=== PATIENT | male | born 1980 | race American Indian/Alaskan Native ===

== ENCOUNTER 2016-09-01 07:03 | Emergency (ER) | payer OTHER ==
[2016-09-01 07:28] VITALS: BP 115/60; PULSE 88; RESP 20; TEMP 99; O2SAT 98
--- NOTE | 2016-09-01 07:40 | ED PDOC ---
HPI: General Adult Time Seen by Provider: 09/01/16 07:35 Chief Complaint (Nursing): Lower Extremity Problem/Injury Chief Complaint (Provider): right knee pain History Per: Patient History/Exam Limitations: no limitations Additional Complaint(s): 36yo male comes to the ED complaining of right knee pain after twisting it while playing basketball with his son two days ago. No falls or other trauma. Describes pain as "tight" when bending the right knee. No other complaints. Past Medical History Reviewed: Historical Data, Nursing Documentation, Vital Signs Vital Signs: Last Vital Signs Temp 99 F 09/01/16 07:25 Pulse 88 09/01/16 07:25 Resp 20 09/01/16 07:25 BP 115/60 09/01/16 07:25 Pulse Ox 98 09/01/16 07:41 - Medical History PMH: No Chronic Diseases - Surgical History Surgical History: No Surg Hx - Family History Family History: States: Unknown Family Hx - Living Arrangements Living Arrangements: With Family - Social History Current smoker - smoking cessation education provided: No Drugs: Denies - Home Medications Home Medications: Ambulatory Orders Medication Instructions Recorded Naproxen [Naprosyn] 500 mg PO Q12H #20 tab 09/01/16 - Allergies Allergies/Adverse Reactions: Allergies Allergy/AdvReac Type Severity Reaction Status Date / Time No Known Allergies Allergy Verified 09/01/16 07:40 Review of Systems Musculoskeletal: Positive for: Other (knee pain) Physical Exam - Reviewed Nursing Documentation Reviewed: Yes Vital Signs Reviewed: Yes - Physical Exam Appears: Positive for: Well, Non-toxic, No Acute Distress Head Exam: Positive for: ATRAUMATIC, NORMAL INSPECTION, NORMOCEPHALIC Skin: Positive for: Warm, Dry Extremity: Positive for: Normal ROM (right knee full ROM.), Other (minimal swelling and tenderness to right knee. no crepitus.) - ECG O2 Sat by Pulse Oximetry: 98 (RA) Pulse Ox Interpretation: Normal Medical Decision Making Medical Decision Makin: Explained XR will be obtained in the ED. Recommend patient follow up with orthopedics as an outpatient to discuss further treatment. Disposition - Clinical Impression Clinical Impression: Knee sprain - Patient ED Disposition Is Patient to be Admitted: No Counseled Patient/Family Regarding: Studies Performed, Diagnosis, Need For Followup, Rx Given - Disposition Referrals: Ashwin Farah III, MD [Staff Provider] - Disposition: Routine/Home Disposition Time: 08:15 Condition: FAIR Prescriptions: Naproxen [Naprosyn] 500 mg PO Q12H #20 tab Instructions: Knee Sprain (ED) Additional Comments - Additional Comments Additional Comments: Scribe Attestation: Documented by Jarek Leary acting as a scribe for Jacob Cary MD. Provider Scribe Attestation: All medical record entries made by the Scribe were at my direction and personally dictated by me. I have reviewed the chart and agree that the record accurately reflects my personal performance of the history, physical exam, medical decision making, and the department course for this patient. I have also personally directed, reviewed, and agree with the discharge instructions and disposition.
[2016-09-01] MEDS ORDERED: Naproxen 500 MG TAB PO STA (07:47)
[2016-09-01] MEDS ORDERED: Naproxen 500 MG TAB PO ONE (08:28)
--- NOTE | 2016-09-01 10:56 | RAD ---
PROCEDURE: Right Knee Radiographs. HISTORY: COMPARISON: None available FINDINGS: Rotated lateral view. BONES: No acute displaced fracture. JOINTS: No dislocation. JOINT EFFUSION: Small suprapatellar joint effusion. OTHER FINDINGS: None. IMPRESSION: Small suprapatellar joint effusion. No acute displaced fracture or dislocation identified. If symptoms persist, or if there is continued clinical concern, x-ray follow-up in 7-10 days should be considered.
== END 2016-09-01 08:53 | disposition home or self-care (01) ==
LOC: H.ER 07:03
DX: M25.561 Pain in right knee (principal); X50.9XXA Other and unspecified overexertion or strenuous movements or postures, initial encounter; Y93.67 Activity, basketball

== ENCOUNTER 2017-06-03 09:41 | Emergency (ER) | payer SELFPAY ==
[2017-06-03 09:55] VITALS: TEMP 98; O2SAT 98
[2017-06-03] MEDS ORDERED: Sodium Chloride 0.9% 1,000 ML IV STA (10:25)
[2017-06-03 11:03] LABS: BASO % 0.7 % (0.0-2.0); EOS # 0.3 K/uL (0.0-0.7); EOS % 5.7 % (0.0-4.0); HEMOGLOBIN 14.8 g/dL (12.0-18.0); LYMPH # 1.8 K/uL (1.0-4.3); LYMPH % 39.2 % (20.0-40.0); MEAN CELL VOLUME 87.9 fl (80.0-94.0); MEAN CORPUSCULAR HEMOGLOBIN 28.9 pg (27.0-31.0); MEAN CORPUSCULAR HGB CONC 32.9 g/dL (33.0-37.0); MEAN PLATELET VOLUME 10.4 fl (7.2-11.7); MONO # 0.4 K/uL (0.0-0.8); MONO % 8.5 % (0.0-10.0); NEUT # 2.2 K/uL (1.8-7.0); NEUT % 45.9 % (50.0-75.0); NRBC % 0.3 % (0.0-0.0); RBC 5.11 Mil/uL (4.40-5.90); WHITE BLOOD COUNT 4.7 K/uL (4.8-10.8)
[2017-06-03 11:11] LABS: ALB/GLOB RATIO 1.2 (1.0-2.1); ALBUMIN 4.2 g/dL (3.5-5.0); ALT/SGPT 33 U/L (21-72); AST/SGOT 32 U/L (17-59); BLOOD UREA NITROGEN 17 mg/dl (9-20); CALCIUM 9.3 mg/dL (8.4-10.2); GFR AFRICAN-AMERICAN > 60; GFR NON-AFRICAN AMERICAN > 60
--- NOTE | 2017-06-03 12:11 | ED PDOC ---
Syncope/Near Syncope/Dizziness Time Seen by Provider: 06/03/17 10:08 Chief Complaint (Nursing): Dizziness/Lightheaded History Per: Patient (36 yo male sent from the [facility] this morning because of complaints of dizziness during a scheduled visit at there. Patient was noted to have a low heart rate. An EKG was done and there was concern of acute findings of bradycardia and repolarization changes. He does not have chest pain or dyspnea. He c/o feeling lighthead but there is not vertiginous component. He works out in the gym with strength and cardiovascular training. He denies fever , chills, nausea, vomiting.) History/Exam Limitations: no limitations Past Medical History Reviewed: Historical Data, Nursing Documentation, Vital Signs Vital Signs: Last Vital Signs Temp 98.0 F 06/03/17 09:54 Pulse 54 L 06/03/17 09:54 Resp 20 06/03/17 09:54 BP 133/72 06/03/17 09:54 Pulse Ox 98 06/03/17 09:54 - Medical History PMH: No Chronic Diseases - Surgical History Surgical History: No Surg Hx - Family History Family History: States: Unknown Family Hx - Living Arrangements Living Arrangements: With Family - Social History Current smoker - smoking cessation education provided: No Alcohol: None Drugs: Denies - Home Medications Home Medications: Ambulatory Orders Medication Instructions Recorded Naproxen [Naprosyn] 500 mg PO Q12H #20 tab 09/01/16 - Allergies Allergies/Adverse Reactions: Allergies Allergy/AdvReac Type Severity Reaction Status Date / Time No Known Allergies Allergy Verified 09/01/16 07:40 Review of Systems ROS Statement: Except As Marked, All Systems Reviewed And Found Negative Constitutional: Negative for: Fever, Chills Eyes: Negative for: Conjunctivae Inflammation ENT: Negative for: Ear Pain, Ear Discharge Cardiovascular: Negative for: Chest Pain Respiratory: Negative for: Cough Neurological: Positive for: Dizziness. Negative for: Weakness, Numbness, Incoordination, Change in Speech, Confusion Physical Exam - Reviewed Nursing Documentation Reviewed: Yes Vital Signs Reviewed: Yes - Physical Exam Appears: Positive for: Well, Non-toxic, No Acute Distress Head Exam: Positive for: ATRAUMATIC, NORMAL INSPECTION, NORMOCEPHALIC Skin: Positive for: Normal Color, Warm, DRY Eye Exam: Positive for: EOMI, Normal appearance, PERRL ENT: Positive for: Normal ENT Inspection Neck: Positive for: Normal, Painless ROM Cardiovascular/Chest: Positive for: Regular Rate, Rhythm Respiratory: Positive for: CNT, Normal Breath Sounds Gastrointestinal/Abdominal: Positive for: Normal Exam, Bowel Sounds, Soft Back: Positive for: Normal Inspection Extremity: Positive for: Normal ROM Neurologic/Psych: Positive for: Alert, Oriented - Laboratory Results Result Diagrams: 06/03/17 10:52 06/03/17 10:52 - ECG O2 Sat by Pulse Oximetry: 98 Medical Decision Making Medical Decision Making: patient stable since arrival. labs normal. No drugs in urine. EKG sinus bradycardia with normal complexes Disposition - Clinical Impression Clinical Impression: Sinus bradycardia - Patient ED Disposition Is Patient to be Admitted: No Doctor Will See Patient In The: Office Counseled Patient/Family Regarding: Diagnosis, Need For Followup - Disposition Referrals: [facility] [Outside] [facility] [Outside] [facility] [Outside] Disposition: Routine/Home Disposition Time: 14:38 Condition: STABLE Instructions: Bradycardia (ED) Forms: [facility] ([place]) - POA Present On Arrival: None
[2017-06-03 13:53] LABS: BARBITURATES, UR NEGATIVE (NEGATIVE); BENZODIAZEPINES, UR NEGATIVE (NEGATIVE); OPIATES, UR NEGATIVE (NEGATIVE); PHENCYCLIDINE, UR NEGATIVE (NEGATIVE)
[2017-06-03 14:55] VITALS: BP 128/79; PULSE 59; RESP 16
--- NOTE | 2017-06-04 14:33 | CARD ---
APPROVED REPORT EKG Measurement Heart [id number] <Conclusion> Sinus bradycardia with sinus arrhythmia Otherwise normal ECG
== END 2017-06-03 14:55 | disposition home or self-care (01) ==
LOC: H.ER 09:41
DX: R00.1 Bradycardia, unspecified (principal)
CPT/HCPCS: 80053; 80324; 80345; 80346; 80349; 80353; 80358; 80361; 82948; 83992; 84484; 85025; 93005; 99285; J7040